=== PATIENT | male | born 1955 | race Hispanic/Latino ===

== ENCOUNTER 2023-06-22 21:53 | Inpatient (IN) | payer MEDICARE, OTHER ==
[~2023-06-22] VITALS: Ht 165.1 cm; Wt 63.5 kg
[2023-06-22] MEDS ORDERED: ONDANSETRON HCL INJ 2MG/ML 2ML 2 MG/ML VIAL IV STA (21:56)
[2023-06-22] MEDS ORDERED: SODIUM CHLORIDE 0.9% 1000ML 1,000 ML IV ONE (22:15)
[2023-06-22] MEDS ORDERED: ACETAMINOPHEN 325 MG TAB PO ONE (22:15)
[2023-06-22 22:16] LABS: BASOPHILS # (AUTO) 0.1 (0.0-0.1); BASOPHILS % 0.7 % (0.0-1.0); EOSINOPHILS # (AUTO) 0.1 (0.0-0.4); EOSINOPHILS % 1.7 % (0.0-6.0); LYMPHOCYTES # (AUTO) 2.4 (1.0-3.2); LYMPHOCYTES % 31.4 % (18.0-39.1); MEAN CORPUSCULAR HGB CONC 33.3 g/dL (31-35); MONOCYTES # (AUTO) 0.4 (0.2-0.8); MONOCYTES % 5.8 % (4.4-11.3); NEUTROPHILS # (AUTO) 4.5 (2.1-6.9); NEUTROPHILS % 60.1 % (38.7-80.0); PLATELET COUNT 253 x10e3/uL (140-360); RED BLOOD COUNT 4.83 x10e6/uL (4.3-5.7); RED CELL DISTRIBUTION WIDTH 12.6 % (11.7-14.4); WHITE BLOOD COUNT 7.55 x10e3/uL (4.8-10.8)
[2023-06-22 22:31] LABS: ALBUMIN 3.8 g/dL (3.5-5.0); ALBUMIN/GLOBULIN RATIO 1.3 (0.8-2.0); ANION GAP 12.8 mmol/L (8-16); BILIRUBIN,TOTAL 0.6 mg/dL (0.2-1.2); CALCIUM 8.5 mg/dL (8.4-10.2); CREATININE, SERUM 0.91 mg/dL (0.72-1.25); LIPASE 43 U/L (8-78); POTASSIUM 3.8 mmol/L (3.5-5.1); TOTAL PROTEIN 6.8 g/dL (6.5-8.1)
[2023-06-22 23:13] LABS: TROPONIN I < 0.05 ng/mL (0.0-0.40)
[2023-06-22 23:44] VITALS: PULSE 92; RESP 18; O2SAT 98
[2023-06-23] VITALS (14 sets, daily range): BP systolic 92–151; BP diastolic 56–76; PULSE 66–96; RESP 16–20; TEMP 97.4–209.3; O2SAT 95–100
[2023-06-23] MEDS ORDERED: ONDANSETRON HCL INJ 2MG/ML 2ML 2 MG/ML VIAL IV PRN (00:15)
[2023-06-23] MEDS: SODIUM CHLORIDE 0.9% 1000ML 1,000 ML IV SCH ×2 (01:32→14:47)
[2023-06-23 06:05] LABS: BILIRUBIN,URINE NEGATIVE (NEGATIVE); CLARITY,URINE CLEAR (CLEAR); COLOR,URINE YELLOW (YELLOW); GLUCOSE, URINE NEGATIVE (NEGATIVE); KETONES,URINE NEGATIVE (NEGATIVE); LEUKOCYTE ESTERASE ,URINE NEGATIVE (NEGATIVE); NITRITE,URINE NEGATIVE (NEGATIVE); PH,URINE 7 (5 - 7); PROTEIN,URINE DIPSTICK NEGATIVE (NEGATIVE); URINE UROBILINOGEN 1 mg/dL (0.2 - 1)
[2023-06-23 06:08] LABS: BACTERIA,URINE FEW /HPF; EPITHELIAL CELLS,URINE FEW /LPF; RBC,URINE 0-5 /HPF (0-5); WBC,URINE (MAN) 0-5 /HPF (0-5)
[2023-06-23 07:00] LABS: TROPONIN I 0.005 ng/mL (0-0.300)
[2023-06-23 14:57] LABS: CREATINE KINASE 123 IU/L (30-200)
[2023-06-23 15:04] LABS: TROPONIN I < 0.001 ng/mL (0-0.300)
[2023-06-23] MEDS ORDERED: OMEPRAZOLE40 MG PO (18:39)
[2023-06-23] MEDS ORDERED: BENICAR20 MG PO (18:39)
[2023-06-23] MEDS ORDERED: FINASTERIDE5 MG PO (18:39)
[2023-06-23] MEDS ORDERED: FLOMAX0.4 MG PO (18:39)
[2023-06-23] MEDS: ZOLPIDEM TARTRATE 5 MG TAB PO PRN (20:31)
[2023-06-23] MEDS: ACETAMINOPHEN 325 MG TAB PO PRN (20:32)
[2023-06-24] VITALS (8 sets, daily range): BP systolic 104–125; BP diastolic 65–73; PULSE 62–74; RESP 16–18; TEMP 97.9–98.4; O2SAT 96–100
[2023-06-24 07:34] LABS: BASOPHILS % 0.4 % (0.0-1.0); EOSINOPHILS # (AUTO) 0.2 (0.0-0.4); EOSINOPHILS % 2.1 % (0.0-6.0); LYMPHOCYTES # (AUTO) 3.3 (1.0-3.2); LYMPHOCYTES % 43.6 % (18.0-39.1); MEAN CORPUSCULAR HEMOGLOBIN 29.1 pg (28-32); MEAN CORPUSCULAR HGB CONC 33.3 g/dL (31-35); MEAN CORPUSCULAR VOLUME 87.4 fL (81-99); MONOCYTES # (AUTO) 0.4 (0.2-0.8); MONOCYTES % 5.6 % (4.4-11.3); NEUTROPHILS # (AUTO) 3.7 (2.1-6.9); NEUTROPHILS % 48.2 % (38.7-80.0); PLATELET COUNT 219 x10e3/uL (140-360); RED BLOOD COUNT 4.46 x10e6/uL (4.3-5.7); RED CELL DISTRIBUTION WIDTH 12.8 % (11.7-14.4); WHITE BLOOD COUNT 7.63 x10e3/uL (4.8-10.8)
[2023-06-24 08:10] LABS: ANION GAP 10.2 mmol/L (8-16); CALCIUM 8.1 mg/dL (8.4-10.2); CREATININE, SERUM 0.71 mg/dL (0.72-1.25); POTASSIUM 4.2 mmol/L (3.5-5.1)
[2023-06-24] MEDS: PANTOPRAZOLE SOD 40 MG TABEC PO SCH (09:05)
[2023-06-24] MEDS: OLMESARTAN 20 MG TAB PO SCH (09:05)
[2023-06-24] MEDS ORDERED: IOPAMIDOL 370 MG/ML 100 ML INFUS..BTL INJ ONE (14:57)
[2023-06-24] MEDS: ACETAMINOPHEN 325 MG TAB PO PRN (21:00)
[2023-06-24] MEDS: FINASTERIDE 5 MG TAB PO SCH (21:00)
[2023-06-24] MEDS: ZOLPIDEM TARTRATE 5 MG TAB PO PRN (21:00)
[2023-06-24] MEDS: TAMSULOSIN HCL 0.4 MG CAP PO SCH (21:00)
[2023-06-25] VITALS (11 sets, daily range): BP systolic 92–136; BP diastolic 57–76; PULSE 60–74; RESP 16–17; TEMP 97.5–98.3; O2SAT 94–99
[2023-06-25] MEDS: OLMESARTAN 20 MG TAB PO SCH (08:52)
[2023-06-25] MEDS: PANTOPRAZOLE SOD 40 MG TABEC PO SCH (08:52)
[2023-06-25] MEDS ORDERED: ONDANSETRON HCL 4 MG ORAL DISINTEGRATING TAB PO PRN (11:30)
[2023-06-25] MEDS: TAMSULOSIN HCL 0.4 MG CAP PO SCH (20:43)
[2023-06-25] MEDS: FINASTERIDE 5 MG TAB PO SCH (20:43)
[2023-06-25] MEDS ORDERED: AZITHROMYCIN 250 MG TAB PO SCH (21:00)
[2023-06-25] MEDS ORDERED: HYDROCODONE/APAP 5MG-325MG TAB PO PRN (21:45)
[2023-06-26 00:33] VITALS: BP 132/83; PULSE 65; RESP 17; TEMP 97.5; O2SAT 98
[2023-06-26 04:00] VITALS: BP 110/60; PULSE 66; RESP 17; TEMP 98; O2SAT 100
[2023-06-26 06:21] LABS: CREATINE KINASE 56 IU/L (30-200)
[2023-06-26 06:34] LABS: TROPONIN I < 0.001 ng/mL (0-0.300)
[2023-06-26 07:36] VITALS: BP 102/61; PULSE 71; RESP 18; TEMP 97.9; O2SAT 99
[2023-06-26] MEDS: PANTOPRAZOLE SOD 40 MG TABEC PO SCH (08:27)
[2023-06-26] MEDS: OLMESARTAN 20 MG TAB PO SCH (08:28)
[2023-06-26 08:56] VITALS: BP 102/61; PULSE 71; RESP 18; TEMP 97.9; O2SAT 99
[2023-06-26 11:30] VITALS: BP 100/64; PULSE 65; RESP 18; TEMP 97.9; O2SAT 98
[2023-06-26] MEDS ORDERED: ACETAMINOPHEN325 M1 PO (13:20)
[2023-06-26] MEDS ORDERED: AZITHROMYCIN250 MG PO (13:20)
[2023-06-26] MEDS ORDERED: ONDANSETRON ODT4 MG PO (13:20)
[2023-06-26] MEDS ORDERED: CEFUROXIME250 MG PO (13:20)
== END 2023-06-26 14:50 | disposition home or self-care (01) | DRG 871 ==
LOC: ER 21:58 → ERHOLD 06-23 00:19 → MED/SURG2 06-23 01:06
PROVIDERS: ADMIT Internal Medicine; ATTEND Internal Medicine
DX: A41.9 Sepsis, unspecified organism (principal); J18.9 Pneumonia, unspecified organism; R65.20 Severe sepsis without septic shock; I10 Essential (primary) hypertension; K21.9 Gastro-esophageal reflux disease without esophagitis; N40.0 Benign prostatic hyperplasia without lower urinary tract symptoms; R42 Dizziness and giddiness; J20.9 Acute bronchitis, unspecified; R55 Syncope and collapse; R73.9 Hyperglycemia, unspecified; E86.1 Hypovolemia; R11.2 Nausea with vomiting, unspecified; Z20.822 Contact with and (suspected) exposure to COVID-19
CPT/HCPCS: 36415; 71045; 71260; 80048; 80053; 81001; 82550; 83036; 83605; 83690; 83735; 84484; 85025; 87040; 87086; 87400; 93005; 93306; 93880; 94799; 99285; J0696; J2405; J7030; J7050; Q9967; U0002